=== PATIENT | male | born 1985 | race Caucasian/White ===

== ENCOUNTER → 2016-02-20 | Outpatient (CLI) | payer BC ==
[~2016-02-20] MED LIST: ALBU1AER9 INH; CHN/1 PO
[2016-02-20 13:40] LABS: DAYS OF ABSTINENCE 3; METHOD OF COLLECTION MASTURBATION; SEMEN COLOR GRAY OR GRAY-WHITE (GRY/GRYWHTE); SEMEN TIME OF COLLECTION 900; SEMEN VOLUME 4.6 ML (>1.5); TYPE OF SPECIMEN CONTAINER STERILE CUP
[2016-02-20 13:42] LABS: SPERM VIABILITY STAIN NOT INDICATED % (>58%)
== END | disposition home or self-care (01) ==
LOC: C.LAB 10:15
PROVIDERS: ATTEND Specialist
DX: Z11.3 Encounter for screening for infections with a predominantly sexual mode of transmission (principal); Z11.4 Encounter for screening for human immunodeficiency virus [HIV]; Z11.59 Encounter for screening for other viral diseases; Z31.41 Encounter for fertility testing

== ENCOUNTER → 2016-06-12 | Outpatient (CLI) | payer BC ==
[2016-06-16 16:31] LABS: HCT 43.4 % (38.5-50.0); HEMOGLOBIN A2 2.6 % (1.8-3.5); HGB 14.4 g/dL (13.2-17.1); MCH 31.8 pg (27.0-33.0); MCV 95.9 FL (80.0-100.0); RBC 4.52 Mill/uL (4.20-5.80); RDW 13.7 % (11.0-15.0)
== END | disposition home or self-care (01) ==
LOC: C.LAB 16:57
PROVIDERS: ATTEND Specialist
DX: Z13.0 Encounter for screening for diseases of the blood and blood-forming organs and certain disorders involving the immune mechanism (principal)